=== PATIENT | female | born 1965 | race Caucasian/White ===

== ENCOUNTER 2020-05-29 12:36 | Emergency (ER) | payer OTHER ==
[~2020-05-29] VITALS: Ht 165.1 cm; Wt 95.0 kg
[2020-05-29 13:37] LABS: HEMATOCRIT 39.4 % (37.0-47.0); HEMOGLOBIN 13.1 g/dl (12.0-16.0); MEAN CELL VOLUME 90.4 fL CALC (80.0-100.0); MEAN CORPUSCULAR HGB CONC 33.2 g/dL CAL (32.0-36.0); NEUT# 3.3 thou/uL (2.00-7.15); RED BLOOD COUNT 4.36 mill/uL (4.20-5.60); RED CELL DISTRI WIDTH 11.8 % (11.5-15.5)
[2020-05-29 13:58] LABS: ALKALINE PHOSPHATASE 170 u/l (38-126); ANION GAP 12 (6-22 (CALC)); BILIRUBIN, TOTAL 0.6 mg/dL (0.0-1.4); BUN 7 mg/dL (7-17); BUN/CREATININE RATIO 15 (12-20 (CALC)); CARBON DIOXIDE 24 mmol/l (22-30); CHLORIDE 104 mmol/l (95-108); CREATININE 0.5 mg/dL (0.5-1.0); GFR > 60 ML/MIN (>=60 (CALC)); GFR FOR AFR.AMER. > 60 ML/MIN (>=60 (CALC)); LIPASE 45 u/l (23-300); POTASSIUM 3.9 mmol/l (3.5-5.1); SGOT/AST 62 u/l (14-36); SODIUM 136 mmol/l (137-146); TOTAL PROTEIN 7.4 g/dL (6.3-8.2)
[2020-05-29] MEDS ORDERED: METFORMIN500 M2 PO (16:55)
[2020-05-29] MEDS ORDERED: AZITHROMYCIN500 MG PO (16:55)
[2020-05-29 17:15] VITALS: BP 133/71
== END 2020-05-29 17:19 | disposition home or self-care (01) | DRG 177 ==
LOC: ED 12:36
DX: U07.1 COVID-19 (principal); J12.82 Pneumonia due to coronavirus disease 2019; E11.9 Type 2 diabetes mellitus without complications
CPT/HCPCS: Q9967

== ENCOUNTER 2020-10-13 07:51 | Day surgery (SDC) | payer OTHER ==
[~2020-10-13] VITALS: Ht 165.1 cm; Wt 89.4 kg
[~2020-10-13 07:51] MED LIST: AZITHROMYCIN500 MG PO; JARDIANCE25 MG PO; LIPITOR20 M1 PO; METFORMIN500 M2 PO
[2020-10-13 10:28] VITALS: BP 114/56
--- NOTE | 2020-11-01 11:35 | NUR ---
PER PHYSICIAN, PATIENT NOTIFIED OF COLONOSCOPY REPORT RESULTS. ADVISED TO REPEAT PROCEDURE X 5 YEARS OR SOONER IF NEEDED, REPORT, NOTE FORWARDED TO PCP FOR CONTINUITY OF CARE. PATIENT VERBALIZED UNDERSTANDING OF INFORMATION PROVIDED. NO CONCERNS VOICED AT TIME OF CALL. STATED WILL FOLLOW UP WITH PCP NEEDED.
== END 2020-10-13 10:20 | disposition home or self-care (01) | DRG 395 ==
LOC: ENDO 07:51 → ORM 09:30 → ENDO 10:20
PROVIDERS: ATTEND Surgery
PROC: 0DJD8ZZ Inspection of Lower Intestinal Tract, Via Natural or Artificial Opening Endoscopic (ICD-10-PCS; principal; 2020-10-13)
DX: K64.8 Other hemorrhoids (principal); E11.9 Type 2 diabetes mellitus without complications; Z79.84 Long term (current) use of oral hypoglycemic drugs; Z80.0 Family history of malignant neoplasm of digestive organs

== ENCOUNTER 2023-05-08 16:20 | Emergency (ER) | payer OTHER ==
[~2023-05-08] VITALS: Ht 165.1 cm; Wt 95.5 kg
[2023-05-08 16:38] VITALS: BP 111/56
[2023-05-08 17:07] VITALS: BP 119/71
[2023-05-08] MEDS ORDERED: NAPROXEN500 MG PO (17:43)
[2023-05-08] MEDS ORDERED: METHOCARBAMOL500 MG PO (17:43)
[2023-05-08 18:09] VITALS: BP 119/71
== END 2023-05-08 18:09 | disposition home or self-care (01) | DRG 605 ==
LOC: ED 16:20
DX: S40.012A Contusion of left shoulder, initial encounter (principal); S20.212A Contusion of left front wall of thorax, initial encounter; E11.9 Type 2 diabetes mellitus without complications; W01.0XXA Fall on same level from slipping, tripping and stumbling without subsequent striking against object, initial encounter; Y92.89 Other specified places as the place of occurrence of the external cause; Y99.0 Civilian activity done for income or pay; Z79.84 Long term (current) use of oral hypoglycemic drugs

== ENCOUNTER 2023-05-13 16:57 | Emergency (ER) | payer OTHER ==
[~2023-05-13] VITALS: Ht 165.1 cm; Wt 95.0 kg
[~2023-05-13 16:57] MED LIST changes: +METHOCARBAMOL500 MG PO; +NAPROXEN500 MG PO
[2023-05-13 17:14] VITALS: BP 131/69
[2023-05-13 17:30] VITALS: BP 148/70
[2023-05-13 17:48] VITALS: BP 131/69
== END 2023-05-13 17:54 | disposition home or self-care (01) | DRG 313 ==
LOC: ED 16:57
DX: R07.89 Other chest pain (principal); E11.9 Type 2 diabetes mellitus without complications; Z79.84 Long term (current) use of oral hypoglycemic drugs